=== PATIENT | male | born 1995 | race Hispanic/Latino ===

== ENCOUNTER 2018-08-19 20:30 | Outpatient (CLI) | payer BC | END 2018-08-19 20:31 | disposition home or self-care (01) | LOC: SLEEPLAB 20:30 | PROVIDERS: ATTEND Family Medicine | DX: G47.33 Obstructive sleep apnea (adult) (pediatric) (principal) | CPT/HCPCS: 95810 ==

== ENCOUNTER 2018-10-06 20:30 | Outpatient (CLI) | payer BC | END 2018-10-06 20:31 | disposition home or self-care (01) | LOC: SLEEPLAB 20:30 | PROVIDERS: ATTEND Family Medicine | DX: G47.33 Obstructive sleep apnea (adult) (pediatric) (principal); R06.83 Snoring; G47.10 Hypersomnia, unspecified; E66.9 Obesity, unspecified; Z68.36 Body mass index [BMI] 36.0-36.9, adult | CPT/HCPCS: 95811 ==

== ENCOUNTER 2018-10-14 01:40 | Emergency (ER) | payer BC ==
[2018-10-14 02:28] LABS: Mean Corpuscular HGB CONC 33.3 g/dL (32.0-36.0); Mean Corpuscular Hemoglobin 28.7 pg (27.0-31.0); Mean Corpuscular Volume 86.1 fL (78.0-98.0); Platelet Count 294 thou/uL (130-400); RBC Distribution Width 12.7 % (11.5-14.5); Red Blood Cell (RBC) Count 5.23 mill/uL (4.70-6.10); White Blood Cell (WBC) Count 20.8 thou/uL (4.8-10.8)
[2018-10-14] MEDS ORDERED: Ondansetron PF 4 MG/2 ML Vial ONE (02:38)
[2018-10-14] MEDS ORDERED: Ketorolac Tromethamine 30 MG/ML VIAL ONE (02:38)
[2018-10-14 02:46] LABS: Band 1 % (5-11); Lymphocytes 6 % (21-51); MDiff Complete? YES; Monocytes 3 % (0-10); Neutrophil 89 % (42-75); Platelet Morphology Comment Appears Adequate; RBC Morphology Normal; Reactive Lymphocytes 1 % (0-10)
[2018-10-14 02:54] LABS: ALT (SGPT) 37 U/L (8-55); AST (SGOT) 21 U/L (5-34); Albumin 4.5 g/dL (3.5-5.0); Alkaline Phosphatase 101 U/L (40-150); Anion Gap 16 mmol/L (10-20); BUN (Urea Nitrogen) 13 mg/dL (8.9-20.6); Bilirubin, Total 0.5 mg/dL (0.2-1.2); Calc. Creatinine Clearance 0 mL/min (70-130); Calcium 9.4 mg/dL (7.8-10.44); Carbon Dioxide 14 mmol/L (22-29); Chloride 112 mmol/L (98-107); Estimated GFR-MDRD Greater than 90; Globulin 3.4 g/dL (2.4-3.5); Glucose 128 mg/dL (70-105); Lipase 20 U/L (8-78); Potassium 3.6 mmol/L (3.5-5.1); Protein, Total 7.9 g/dL (6.0-8.3); Sodium 138 mmol/L (136-145)
[2018-10-14 04:42] LABS: Bilirubin Negative (Negative); Blood, Urine Large (Negative); Clarity CLEAR (Clear); Glucose, Urine (Dipstick) Negative (Negative); Leukocyte Negative (Negative); Nitrite Negative (Negative); Protein, Urine (Dipstick) Negative (Neg-Trace); Specific Gravity, Urine 1.017 (1.002-1.036); Urobilinogen 0.2 mg/dL (0.2-1.0)
[2018-10-14 04:45] LABS: Bacteria/HPF None Seen HPF (None Seen); Hyaline Casts/LPF 0-3 HYALINE CAST LPF (0-3 Hyaline); Pathc Cast-AUWi Flag 0.29 (0-2.49); RBC/HPF GREATER THAN 50-TNTC HPF (0-3); Squamous Epithelial 0-3 HPF (0-3); WBC/HPF 0-3 HPF (0-3)
--- NOTE | 2018-10-14 08:06 | CT ---
PRELIMINARY REPORT/[facility]/EMERGENTY AFTER-HOURS PROCEDURE CT Abdomen and Pelvis With Contrast EXAM DATE/TIME: 10/14/2018 3:10 AM CLINICAL HISTORY: 23 years old, male; Pain; Abdominal pain; Localized; Lower; Patient HX: 23 yo male presents for evalu ation of pain that started approximately 3 hours ago. He states the pain began in his lumbar spine an d then migrated to his waist line and then into his penis. The patient had no history of trauma. He has had back pain in the past, but not the other pains. Patient has not had fevers, chills, or inc ontinence. TECHNIQUE: Axial computed tomography images of the abdomen and pelvis with intravenous contrast. Coronal reforma tted images were created and reviewed. COMPARISON: No relevant prior studies available. FINDINGS: Lower thorax: No acute findings. ABDOMEN: Liver: Normal. Gallbladder and bile ducts: Normal. Pancreas: Normal. Spleen: Normal. Adrenals: 2.6 cm left adrenal nodule, statistically benign, but not definitively characterized on thi s study. Kidneys and ureters: Normal. Stomach and bowel: Normal. Appendix: Appendix is normal. PELVIS: Bladder: Unremarkable as visualized. Reproductive: Unremarkable as visualized. ABDOMEN and PELVIS: Intraperitoneal space: Normal. No free air. No significant fluid collection. Bones/joints: No acute abnormality. Soft tissues: Normal. Vasculature: Normal. No abdominal aortic aneurysm. Lymph nodes: Normal. No enlarged lymph nodes. IMPRESSION: No acute abdominal or pelvic abnormality. Thank you for allowing us to participate in the care of your patient. Dictated and Authenticated by: Román Castillo MD 10/14/2018 4:16 AM Central Time ([place] & [place]) FINAL REPORT EMERGENT AFTER HOURS CT ABDOMEN AND PELVIS WITH IV CONTRAST: DATE: 10/14/2018. HISTORY: Abdominal pain and flank pain. The patient states the pain began in the lumbar region 3 hours ago th at migrated to waistline and then into the penis. COMPARISON: 04/03/2015. IMPRESSION: 1. A 3.1 cm hypodense left adrenal nodule is present previously measuring 2.8 cm on the study in 201 5. This cannot be adequately characterized as an adrenal adenoma on this postcontrast CT scan examin ation, and CT abdomen without IV contrast is recommended for further characterization. 2. No renal or ureteral calculus is seen, and there is no evidence of a renal mass. No hydronephros is is present. 3. No acute findings are seen in the abdomen or pelvis. 4. Fat density areas within the right gluteal region with adjacent thin hypodense rims present with adjacent linear area of increased density. Findings are likely related to areas of scarring and fat necrosis. There is evidence of areas of contusion in this region on prior exam of 2014. CODE T POS: SCOT
[2018-10-14] MEDS ORDERED: ISOVUE-370 76%-LOCM 1 ML ONE (11:24)
== END 2018-10-14 06:12 | disposition home or self-care (01) ==
LOC: ERS 01:40
DX: M54.5 Low back pain (principal); K58.9 Irritable bowel syndrome, unspecified
CPT/HCPCS: 36415; 74177; 80053; 81003; 81015; 83690; 85025; 87086; 96361; 96374; 96375; J1885; J2405; Q9966